=== PATIENT | female | born 1945 | race Caucasian/White ===

== ENCOUNTER 2021-09-19 15:58 | Inpatient (IN) ==
[2021-09-19 17:00] LABS: Basophils % 0.3 % (0.0-0.8); Eosinophils % 0.1 % (0.00-10.9); Hematocrit 41.4 VOL% (35.7-47.0); Hemoglobin 13.2 GM/DL (12.0-16.0); Immature Granulocytes % 0.5 %; Immature Granulocytes Absolute 0.07 #; Lymphocytes # 0.7 10*3/uL (1.4-4.0); Lymphocytes % 4.6 % (21.3-54.2); Mean Corpuscular HGB Conc 31.9 GM/DL (32-36); Mean Corpuscular Volume 95.6 FL (87-102); Mean Platelet Volume 11.2 FL (9.6-12.0); Monocytes # 0.6 10*3/uL (0.11-0.8); Neutrophils % 90.5 % (38.7-73.9); Platelet Count 201 T/CUMM (130-400); Red Blood Count 4.33 MC/CUMM (3.8-5.5); Red Cell Distribution Width 13.5 % (9.3-17.3); White Blood Count 14.2 T/CUMM (4-12)
[2021-09-19 17:23] LABS: Calcium 9.3 MG/DL (8.5-10.1); Osmolality,Calculated 285.4 MOS/KG (273-304); Potassium 4.4 MMOL/L (3.5-5.1)
[2021-09-19] MEDS ORDERED: LACTATED RINGERS 1,000 ML IV ONE (17:33)
[2021-09-19] MEDS ORDERED: MORPHINE 2 MG/1 ML SYRINGE IV PRN ×2 (17:36→18:24)
[2021-09-19] MEDS ORDERED: ONDANSETRON 4 MG/2 ML VIAL IV PRN (17:36)
[2021-09-19 17:42] LABS: Lymphocytes 5 % (20-55); Platelet Estimate Adequate; Total Cells Counted 100
[2021-09-19 18:31] LABS: PT Patient Result 10.7 SECS (10.5-12.0); Partial Thromboplastin Time 25.2 SECS (23.7-32.9)
[2021-09-19 18:40] LABS: Thyroid Stimulating Hormone 2.12 uIU/ml (0.358-3.74)
[2021-09-19] MEDS: risperiDONE 1 MG TABLET PO SCH (21:11)
[2021-09-19] MEDS: SODIUM CHLORIDE 0.9% 1,000 ML IV SCH (21:11)
[2021-09-19] MEDS: traZODone 50 MG TABLET PO PRN (21:11)
[2021-09-19 22:38] LABS: Bacteria,Urine Many /HPF (Few); Mucus,Urine Occasional /LPF (Occasional); Squamous Epithelial Cell,Urine Occasional /HPF (0-10)
[2021-09-19 22:39] LABS: Bilirubin,Urine Negative (Negative); Blood, Urine Trace mg/dL (Negative); Glucose,Urine (UA) Negative (Negative); Ketones,Urine Negative (Negative); Nitrite,Urine Positive (Negative); Protein,Urine Trace mg/dL (Negative); Urine Appearance Clear (Clear); Urine Color Yellow (Yellow); Urine Urobilinogen 0.2 eU/dL (<2.0)
[2021-09-20] MEDS: SODIUM CHLORIDE 0.9% 1,000 ML IV SCH ×2 (03:54→13:53)
[2021-09-20 05:42] LABS: Basophils % 0.2 % (0.0-0.8); Eosinophils % 0.4 % (0.00-10.9); Hematocrit 33.9 VOL% (35.7-47.0); Hemoglobin 11.1 GM/DL (12.0-16.0); Immature Granulocytes % 0.3 %; Immature Granulocytes Absolute 0.03 #; Lymphocytes # 1.3 10*3/uL (1.4-4.0); Lymphocytes % 12.4 % (21.3-54.2); Mean Corpuscular HGB Conc 32.7 GM/DL (32-36); Mean Corpuscular Volume 94.4 FL (87-102); Mean Platelet Volume 11.5 FL (9.6-12.0); Monocytes # 1.2 10*3/uL (0.11-0.8); Monocytes % 11.5 % (1.7-12.7); Neutrophils % 75.2 % (38.7-73.9); Platelet Count 174 T/CUMM (130-400); Red Blood Count 3.59 MC/CUMM (3.8-5.5); Red Cell Distribution Width 13.5 % (9.3-17.3); White Blood Count 10.2 T/CUMM (4-12)
[2021-09-20 06:01] LABS: Calcium 8.7 MG/DL (8.5-10.1); Osmolality,Calculated 283.3 MOS/KG (273-304)
[2021-09-20] MEDS: LACTATED RINGERS 1,000 ML IV SCH (13:53)
[2021-09-20] MEDS: risperiDONE 0.5 MG TABLET PO SCH (13:53)
[2021-09-20] MEDS: MIRTAZAPINE 15 MG TABLET PO SCH (14:40)
[2021-09-20] MEDS: FAMOTIDINE 20 MG TABLET PO SCH (14:40)
[2021-09-20] MEDS: SERTRALINE 25 MG TABLET PO SCH (14:40)
[2021-09-20] MEDS ORDERED: cefTRIAXone 1,000 MG in SODIUM CHLORIDE 0.9% 100 ML IV SCH (15:00)
[2021-09-20] MEDS ORDERED: fentaNYL 100 MCG/2 ML VIAL ONE (15:17)
[2021-09-20] MEDS ORDERED: LIDOCAINE 2% 5 ML VIAL ONE (15:17)
[2021-09-20] MEDS ORDERED: SEVOFLURANE 1 UNIT/15 MINUTE INH ONE (15:17)
[2021-09-20] MEDS ORDERED: ETOMIDATE 40 MG/20 ML VIAL IV ONE (15:17)
[2021-09-20] MEDS ORDERED: GLYCOPYRROLATE 0.4 MG/2 ML VIAL ONE ×2 (15:19→16:11)
[2021-09-20] MEDS ORDERED: ONDANSETRON 4 MG/2 ML VIAL ONE (15:19)
[2021-09-20] MEDS ORDERED: ceFAZolin 1,000 MG VIAL ONE (15:50)
[2021-09-20] MEDS ORDERED: ePHEDrine 50 MG/ML VIAL ONE (16:11)
[2021-09-20] MEDS ORDERED: FONDAPARINUX 2.5 MG/0.5 ML SYRINGE SUBCUT SCH (20:00)
[2021-09-20] MEDS ORDERED: DONEPEZIL 10 MG TABLET PO SCH (21:00)
[2021-09-20] MEDS: risperiDONE 1 MG TABLET PO SCH (21:20)
[2021-09-20] MEDS: traZODone 50 MG TABLET PO PRN (21:22)
[2021-09-21] MEDS: LACTATED RINGERS 1,000 ML IV SCH ×2 (02:21→15:29)
[2021-09-21 05:07] LABS: Basophils % 0.1 % (0.0-0.8); Eosinophils % 0.2 % (0.00-10.9); Hematocrit 28.8 VOL% (35.7-47.0); Immature Granulocytes % 0.2 %; Immature Granulocytes Absolute 0.02 #; Lymphocytes # 0.8 10*3/uL (1.4-4.0); Lymphocytes % 9.5 % (21.3-54.2); Mean Corpuscular HGB Conc 31.3 GM/DL (32-36); Mean Corpuscular Volume 96.3 FL (87-102); Mean Platelet Volume 11.8 FL (9.6-12.0); Monocytes # 0.9 10*3/uL (0.11-0.8); Monocytes % 11.4 % (1.7-12.7); Neutrophils % 78.6 % (38.7-73.9); Platelet Count 129 T/CUMM (130-400); Red Blood Count 2.99 MC/CUMM (3.8-5.5); Red Cell Distribution Width 13.9 % (9.3-17.3); White Blood Count 8.2 T/CUMM (4-12)
[2021-09-21 05:23] LABS: Calcium 8.1 MG/DL (8.5-10.1); Osmolality,Calculated 275.7 MOS/KG (273-304); Potassium 3.8 MMOL/L (3.5-5.1)
[2021-09-21] MEDS: risperiDONE 0.5 MG TABLET PO SCH (08:36)
[2021-09-21] MEDS: FAMOTIDINE 20 MG TABLET PO SCH (08:36)
[2021-09-21] MEDS: SERTRALINE 25 MG TABLET PO SCH (08:36)
[2021-09-21] MEDS: MIRTAZAPINE 15 MG TABLET PO SCH (08:36)
[2021-09-21 11:39] VITALS: BP 110/45
[2021-09-21] MEDS ORDERED: ENOXAPARIN 40 MG/0.4 ML SYRINGE SUBCUT SCH (12:30)
== END 2021-09-21 15:20 | DRG 482 ==
LOC: N.ED 15:58 → N.EDINP 17:19 → SUATTDRO 17:19 → N.3E 18:33
PROVIDERS: ADMIT Internal Medicine; ATTEND Family Medicine